=== PATIENT | female | born 1995 | race Caucasian/White ===

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

== ENCOUNTER 2017-09-28 01:23 | Emergency (ER) | payer MEDICAID ==
[2017-09-28] MEDS ORDERED: AMOXICILLIN/POTASSIUM CLAV 875MG/125MG TABLET PO ONE (01:40)
[2017-09-28] MEDS ORDERED: IBUPROFEN 600 MG TABLET PO ONE (01:40)
--- NOTE | 2017-09-28 01:45 | Emergency Department Record ---
History of Present Illness - General Chief complaint: ENT Stated complaint: LUMP ON NECK Time Seen by Provider: 09/28/17 01:35 Source: Patient Mode of Arrival: Ambulatory Limitations: Physical limitation - History of Present Illness Initial comments: The patient is here due to a tender swollen area under her R jaw for the last 4 days. She denies any fever, chills, ST, cough, dental pain, voice changes or trauma. The patient denies any recent illness and has had no hx of similar issues. MD complaint: Other Onset/Timin -: Days(s) Severity: Moderate Severity scale (1-10): 5 Quality: Aching Consistency: Constant Improves with: None Worsens with: Eating, Movement, Other Associated Symptoms: Pain with swallowing - Related Data Previous Rx's Medication Instructions Recorded Amoxicillin/Potassium Clav 1 tab PO BID #14 tablet 09/28/17 [Augmentin 875Mg/125Mg] Ibuprofen [Motrin 600Mg] 600 mg PO Q8H #21 tablet 09/28/17 Allergies Allergy/AdvReac Type Severity Reaction Status Date / Time No Known Drug Allergies Allergy Verified 07/21/16 16:30 Travel Screening - Travel/Exposure Within Last 30 Days Have you traveled within the last 30 days?: No - Travel Symptoms Symptom Screening: None Review of Systems Constitutional: Denies: Chills, Fever Eyes: Denies: Eye discharge ENT: Denies: Congestion Respiratory: Denies: Cough, Dyspnea Past Medical History - SOCIAL HISTORY Smoking Status: Heavy tobacco smoker (>10/day) Alcohol Use: None Drug Use: None - RESPIRATORY Hx Respiratory Disorders: No - CARDIOVASCULAR Hx Cardio Disorders: No - NEURO Hx Neuro Disorders: No - GI Hx GI Disorders: No - Hx Genitourinary Disorders: No - ENDOCRINE Hx Endocrine Disorders: No - MUSCULOSKELETAL Hx Musculoskeletal Disorders: No - PSYCH Hx Psych Problems: No - HEMATOLOGY/ONCOLOGY Hx Hematology/Oncology Disorders: No Family Medical History Any Significant Family History?: No Family Hx Comment (NOT TO BE USED IN PLACE OF ITEMS BELOW): denies Physical Exam - General General Appearance: Alert, Oriented x3, Cooperative, No acute distress (the patient is very nontoxic and speaking in full sentences with no dysphonia.) - Head Head exam: Atraumatic, Normocephalic, Normal inspection Image of Face/Head: 1 - Area of pain and swollen node. - Eye Eye exam: Normal appearance, PERRL, EOMI - ENT ENT exam: Normal orophraynx, TM's normal bilaterally. negative: Normal exam Throat exam: Normal inspection. negative: Tonsillar erythema, Tonsillomegaly, Tonsillar exudate, R peritonsillar mass, L peritonsillar mass - Neck Neck exam: Full ROM, Lymphadenopathy (There is a tender enlarged R submandibular gland on the R side. ), Tenderness (over the R submandicular gland.). negative: Normal inspection, Meningismus - Respiratory Respiratory exam: Normal lung sounds bilaterally - Cardiovascular Cardiovascular Exam: Regular rate, Normal rhythm, Normal heart sounds Course Vital Signs 09/28/17 01:29 Temperature 98.6 F Pulse Rate 96 H Respiratory 20 Rate Blood Pressure 126/82 Pulse Ox 100 - Reevaluation(s) Reevaluation #1: I explained to the patient it does not appear she has any sign of airway compromise. She will be started on Augmentin and Motrin and is to see a PCP if not better later this week and is to return to the ER for any worsening symptoms. 09/28/17 01:44 Disposition Disposition: Discharge Clinical Impression: Submandibular gland inflammation Disposition: Home, Self-Care Condition: (2) Stable Instructions: Sialoadenitis (ED) Additional Instructions: Please take the Motrin for pain and continue the Augmentin. Please see a family doctor if not better in 3 days and return to the ER for any worsening symptoms. Prescriptions: Amoxicillin/Potassium Clav [Augmentin 875Mg/125Mg] 1 tab PO BID #14 tablet Ibuprofen [Motrin 600Mg] 600 mg PO Q8H #21 tablet Forms: Patient Portal Access Time of Disposition: 01:47 Quality - Quality Measures Quality Measures: N/A - Blood Pressure Screening View Details: Yes Does Patient Have Any of the Following: No Blood Pressure Classification: Pre-Hypertensive BP Reading Systolic Measurement: 126 Diastolic Measurement: 82 Screening for High Blood Pressure: < Pre-Hypertensive BP, F/U Documented > [ G8950] Pre-Hypertensive Follow-up Interventions: Referral to alternative/primary care provider.
== END 2017-09-28 01:53 | disposition home or self-care (01) ==
LOC: ER 01:23
DX: K11.20 Sialoadenitis, unspecified (principal); F17.210 Nicotine dependence, cigarettes, uncomplicated
CPT/HCPCS: 99282

== ENCOUNTER 2019-04-25 18:25 | Emergency (ER) | payer MEDICAID ==
--- NOTE | 2019-04-25 18:43 | Emergency Department Record ---
History of Present Illness - General Chief complaint: ENT Stated complaint: RT EAR CANT HEAR Time Seen by Provider: 04/25/19 18:34 Source: Patient Mode of Arrival: Ambulatory Limitations: No limitations - History of Present Illness Initial comments: 23 yo female presents to ED for evaluation of decreased hearing in the right ear. Patient denies drainage from the ear, denies fevers, chills, or trauma to the ear. Patient denies sore throat symptoms, does report congestion symptoms. Patient denies health problems at her baseline. MD complaint: Other (Difficulty in hearing ) Onset/Timin -: Days(s) Location: R ear Quality: Burning Improves with: None Worsens with: None Associated Symptoms: Hearing loss - Related Data Home Medications Medication Instructions Recorded Confirmed Last Taken No Home Med [NO HOME MEDS] 04/25/19 04/25/19 Unknown Allergies Allergy/AdvReac Type Severity Reaction Status Date / Time No Known Drug Allergies Allergy Verified 07/21/16 16:30 Travel Screening - Travel/Exposure Within Last 30 Days Have you traveled within the last 30 days?: No Review of Systems Constitutional: Denies: Chills, Fever, Malaise, Night sweats Eyes: Denies: Eye discharge, Eye pain ENT: Reports: Congestion, Other (Decreased hearing right ear). Denies: Dental pain, Epistaxis Respiratory: Denies: Cough, Dyspnea Cardiovascular: Denies: Chest pain, Dyspnea on exertion Endocrine: Denies: Fatigue, Heat or cold intolerance Gastrointestinal: Denies: Abdominal pain, Nausea, Vomiting Genitourinary: Denies: Incontinence, Retention Musculoskeletal: Denies: Arthralgia, Back pain Skin: Denies: Bruising, Change in color Neurological: Denies: Abnormal gait, Confusion, Headache, Tingling, Tremors Psychiatric: Denies: Anxiety Hematological/Lymphatic: Denies: Anemia, Blood Clots Past Medical History - SOCIAL HISTORY Smoking Status: Heavy tobacco smoker (>10/day) - RESPIRATORY Hx Respiratory Disorders: No - CARDIOVASCULAR Hx Cardio Disorders: No - NEURO Hx Neuro Disorders: No - GI Hx GI Disorders: No - Hx Genitourinary Disorders: No - ENDOCRINE Hx Endocrine Disorders: No - MUSCULOSKELETAL Hx Musculoskeletal Disorders: No - PSYCH Hx Psych Problems: No - HEMATOLOGY/ONCOLOGY Hx Hematology/Oncology Disorders: No Family Medical History Any Significant Family History?: No Family Hx Comment (NOT TO BE USED IN PLACE OF ITEMS BELOW): denies Physical Exam - General General Appearance: Alert, Oriented x3, Cooperative, No acute distress Limitations: No limitations - Head Head exam: Atraumatic, Normocephalic, Normal inspection Head exam detail: negative: Abrasion, Contusion, Rosen's sign, General tenderness, Hematoma, Laceration - Eye Eye exam: Normal appearance. negative: Conjunctival injection, Periorbital swelling, Periorbital tenderness, Scleral icterus - ENT ENT exam: Normal orophraynx Ear exam: Other (Mild fluid behind the right TM, no evidence for infection, no perforation to the TM on examination.). negative: Auricular hematoma, Auricular trauma Nasal Exam: negative: Active bleeding, Discharge, Dried blood Mouth exam: negative: Drooling, Laceration, Muffled voice, Tongue elevation - Neck Neck exam: Normal inspection. negative: Meningismus, Tenderness - Respiratory Respiratory exam: Normal lung sounds bilaterally. negative: Respiratory distress, Rhonchi, Stridor, Wheezes - Cardiovascular Cardiovascular Exam: Regular rate, Normal rhythm, Normal heart sounds - GI/Abdominal GI/Abdominal exam: Soft. negative: Distended, Rebound, Rigid, Tenderness - Rectal Rectal exam: Deferred - exam: Deferred - Extremities Extremities exam: Normal inspection. negative: Pedal edema, Tenderness - Back Back exam: Denies: CVA tenderness (R), CVA tenderness (L) - Neurological Neurological exam: Alert, Normal gait, Oriented X3 - Psychiatric Psychiatric exam: Normal affect, Normal mood - Skin Skin exam: Normal color. negative: Abrasion Type of lesion: negative: abrasion Course Vital Signs 04/25/19 18:33 Temperature 98.2 F Pulse Rate 94 H Respiratory 18 Rate Blood Pressure 118/77 Pulse Ox 95 - Reevaluation(s) Reevaluation #1: 04/25/19 18:47 Patient was seen and examined No evidence for perforation to the TM on examination No evidence for infection Examination appears c/w eustachian tube dysfunction on examination. Recommended decongestant as discussed. Patient appears stable for discharge at this time. Disposition Disposition: Discharge Clinical Impression: Eustachian tube dysfunction Qualifiers: Laterality: right Qualified Code(s): H69.81 - Other specified disorders of Eustachian tube, right ear Disposition: Home, Self-Care Condition: (2) Stable Instructions: Antihistamine/Decongestant (By mouth) Additional Instructions: Return to ED if your symptoms worsen or if you have any concerns. Dharmeshitan-D as directed. Follow-up with your family doctor in 3-5 days as directed. Forms: Patient Portal Access Time of Disposition: 18:43 Quality - Quality Measures Quality Measures: N/A - Blood Pressure Screening Does Patient Have Any of the Following: No Blood Pressure Classification: Normal BP Reading Systolic Measurement: 118 Diastolic Measurement: 77 Screening for High Blood Pressure: < Normal BP, F/U Not Required > [G8783]
== END 2019-04-25 18:57 | disposition home or self-care (01) ==
LOC: ER 18:25
DX: H69.81 Other specified disorders of Eustachian tube, right ear (principal)
CPT/HCPCS: 99282